=== PATIENT | male | born 1975 | race African-American/Black ===

== ENCOUNTER 2016-12-19 13:04 | Emergency (ER) | payer MEDICAID ==
[~2016-12-19] VITALS: Ht 182.9 cm; Wt 61.6 kg
[~2016-12-19 13:04] MED LIST: GABA300C PO; INSU100I11 SQ-INSULIN; INSU100V8 SQ; prozac
[2016-12-19 13:28] VITALS: BP 138/90
== END 2016-12-19 14:13 | disposition home or self-care (01) ==
LOC: ED 14:04
DX: Z76.0 Encounter for issue of repeat prescription (principal); E11.9 Type 2 diabetes mellitus without complications
CPT/HCPCS: 99283

== ENCOUNTER 2017-01-24 17:27 | Emergency (ER) | payer MEDICAID ==
[~2017-01-24] VITALS: Ht 182.9 cm; Wt 67.2 kg
[2017-01-24 17:28] VITALS: BP 141/87
== END 2017-01-24 18:07 | disposition home or self-care (01) ==
LOC: ED 18:02
DX: Z76.0 Encounter for issue of repeat prescription (principal); E11.65 Type 2 diabetes mellitus with hyperglycemia
CPT/HCPCS: 99283

== ENCOUNTER 2017-06-22 12:55 | Emergency (ER) | payer MEDICAID ==
[~2017-06-22] VITALS: Ht 182.9 cm; Wt 61.6 kg
[2017-06-22 12:57] VITALS: BP 133/87
== END 2017-06-22 13:54 | disposition home or self-care (01) ==
LOC: ED 13:47
DX: Z76.0 Encounter for issue of repeat prescription (principal); E10.40 Type 1 diabetes mellitus with diabetic neuropathy, unspecified; E10.65 Type 1 diabetes mellitus with hyperglycemia; Z79.4 Long term (current) use of insulin
CPT/HCPCS: 99283

== ENCOUNTER 2019-03-13 17:59 | Emergency (ER) | payer MEDICAID ==
[~2019-03-13] VITALS: Ht 182.9 cm; Wt 64.8 kg
[2019-03-13 20:35] VITALS: BP 136/85
== END 2019-03-13 20:45 | disposition home or self-care (01) ==
LOC: ED 20:39
DX: E11.65 Type 2 diabetes mellitus with hyperglycemia (principal); Z72.9 Problem related to lifestyle, unspecified; F17.200 Nicotine dependence, unspecified, uncomplicated; E11.40 Type 2 diabetes mellitus with diabetic neuropathy, unspecified
CPT/HCPCS: 80048; 82040; 82962; 85025; 96372; 99283

== ENCOUNTER 2020-04-11 07:32 | Emergency (ER) | payer MEDICAID ==
[~2020-04-11] VITALS: Ht 175.3 cm; Wt 62.1 kg
--- NOTE | 2020-04-11 08:28 | NUR ---
pa at bedside evaluating at this time.
[2020-04-11] MEDS ORDERED: LORazepam 1MG TABLET ONE (08:48)
--- NOTE | 2020-04-11 08:50 | NUR ---
pt medicated per emar. pt tolerated well.
[2020-04-11] MEDS ORDERED: LORazepam 1MG TABLET PO ONE (09:00)
--- NOTE | 2020-04-11 09:12 | NUR ---
BG 425 at this time
[2020-04-11] MEDS ORDERED: SODIUM CHLORIDE 0.9% 1,000ML IVBOLUS ONE (09:30)
--- NOTE | 2020-04-11 09:30 | NUR ---
piv est on r ac with no complications. ns infusing at this time. pt tolerated well.
[2020-04-11 10:21] VITALS: BP 170/83
--- NOTE | 2020-04-11 10:24 | NUR ---
Patient given discharge instructions and they have confirmed that they understand the instructions. Patient ambulatory with steady gait.
== END 2020-04-11 10:25 | disposition home or self-care (01) ==
LOC: ED 08:31
DX: F41.1 Generalized anxiety disorder (principal); E11.65 Type 2 diabetes mellitus with hyperglycemia; E11.40 Type 2 diabetes mellitus with diabetic neuropathy, unspecified; F17.210 Nicotine dependence, cigarettes, uncomplicated
CPT/HCPCS: 82962; 96360; 99283; J7030

== ENCOUNTER 2020-04-13 12:25 | Emergency (ER) | payer MEDICAID ==
[~2020-04-13] VITALS: Ht 175.3 cm; Wt 64.5 kg
[2020-04-13 13:19] LABS: BASOPHILS # (AUTO) 0.05 x10^3/uL (0-0.1); BASOPHILS % (AUTO) 1 % (0-1); EOSINOPHILS # (AUTO) 0.22 x10^3/uL (0-0.4); EOSINOPHILS % (AUTO) 3 % (1-7); LYMPHOCYTES # (AUTO) 1.88 x10^3/uL (1-3.4); LYMPHOCYTES % (AUTO) 29 % (22-44); MD NO; MEAN CORPUSCULAR HEMOGLOBIN 29.3 pg (27.5-34.5); MEAN CORPUSCULAR HGB CONC 33.8 g/dL (33.2-36.2); MEAN CORPUSCULAR VOLUME 86.6 fL (81-97); MEAN PLATELET VOLUME 9.2 fL (7.4-10.4); MONOCYTES % (AUTO) 5 % (2-9); NEUTROPHILS # (AUTO) 4.16 x10^3/uL (1.8-6.8); NEUTROPHILS % (AUTO) 63 % (42-75); PLATELET COUNT 290 x10^3/uL (130-400); RED BLOOD COUNT 4.37 x10^6/uL (4.38-5.82); RED CELL DISTRIBUTION WIDTH 15.3 % (9.4-14.8)
[2020-04-13 13:26] LABS: ALBUMIN 3.5 g/dL (3.4-5.0); ANION GAP 9 mmol/L (5-15); CALCIUM 8.6 mg/dL (8.5-10.1); CHLORIDE 89 mmol/L (98-107); CREATININE 1.68 mg/dL (0.7-1.3)
[2020-04-13] MEDS ORDERED: SODIUM CHLORIDE 0.9% 1,000ML IVBOLUS ONE ×3 (13:30→15:30)
--- NOTE | 2020-04-13 13:38 | NUR ---
LAB CALLED WITH CRITICAL BLOOD GLUCOSE OF [id number] REPORTED TO PROVIDER. ADDITIONAL PIV ACCESS INITIATED, VSS AT THIS TIME. BOLUS INFUSING
[2020-04-13 13:44] LABS: PH, VENOUS 7.304 pH (7.320-7.420)
[2020-04-13 13:45] LABS: FIO2 ROOM AIR %
[2020-04-13] MEDS ORDERED: ACETAMINOPHEN 500 MG TABLET ONE (13:46)
[2020-04-13] MEDS ORDERED: ACETAMINOPHEN 500 MG TABLET PO ONE (14:00)
[2020-04-13 14:03] LABS: MICROSCOPIC NOT IND
[2020-04-13] MEDS ORDERED: INSULIN SINGLE DOSE, ER ONE ×2 (14:03→15:40)
[2020-04-13 14:18] LABS: ACETONE, SERUM Negative (Negative)
--- NOTE | 2020-04-13 14:43 | NUR ---
PT MEDICATED WITH ADDITIONAL MEDICATIONS PER MAR, UA SAMPLE COLLECTED AND SENT TO LAB
[2020-04-13 15:03] VITALS: BP 169/109
[2020-04-13] MEDS ORDERED: INSULIN REGULAR 100 UNITS/ML, 3ML VIAL IVPush ONE (15:30)
[2020-04-13] MEDS ORDERED: INSULIN REGULAR 100 UNITS/ML, 3ML VIAL SQ-INSULIN SCH (16:00)
--- NOTE | 2020-04-13 17:20 | NUR ---
Patient given discharge instructions and they have confirmed that they understand the instructions. Patient ambulatory with steady gait.
== END 2020-04-13 17:34 | disposition home or self-care (01) ==
LOC: ED 14:28
DX: K04.7 Periapical abscess without sinus (principal); E11.65 Type 2 diabetes mellitus with hyperglycemia; Z72.9 Problem related to lifestyle, unspecified; Z76.0 Encounter for issue of repeat prescription
CPT/HCPCS: 36415; 80048; 81003; 82010; 82040; 82803; 82962; 85025; 96361; 96374; 99283; J1815; J7030

== ENCOUNTER 2020-05-22 11:23 | Emergency (ER) | payer MEDICAID ==
[~2020-05-22] VITALS: Ht 175.3 cm; Wt 63.0 kg
[2020-05-22 11:36] VITALS: BP 140/96
--- NOTE | 2020-05-22 12:12 | NUR ---
poc glucose per provider. reading of 50. pt states he took his insulin this am but didn't eat. pt given crackers and apple juice. pt axox4 and in no distress. pt states he feels fine. provider made aware.
== END 2020-05-22 12:40 | disposition home or self-care (01) ==
LOC: ED 12:05
DX: J45.40 Moderate persistent asthma, uncomplicated (principal); E10.649 Type 1 diabetes mellitus with hypoglycemia without coma; F41.1 Generalized anxiety disorder; Z76.0 Encounter for issue of repeat prescription
CPT/HCPCS: 82962; 99282

== ENCOUNTER 2020-05-26 13:43 | Emergency (ER) | payer MEDICAID ==
[2020-05-26] MEDS ORDERED: SODIUM CHLORIDE FLUSH 10ML SYR IVF ONE (14:30)
[2020-05-26] MEDS ORDERED: SODIUM CHLORIDE 0.9% 1,000ML IVBOLUS ONE (14:30)
[2020-05-26 14:50] LABS: PH, VENOUS 7.408 pH (7.320-7.420)
[2020-05-26 14:58] LABS: BASOPHILS % (AUTO) 1 % (0-1); EOSINOPHILS % (AUTO) 5 % (1-7); LYMPHOCYTES % (AUTO) 34 % (22-44); MEAN CORPUSCULAR HEMOGLOBIN 28.9 pg (27.5-34.5); MEAN CORPUSCULAR HGB CONC 33.1 g/dL (33.2-36.2); MEAN PLATELET VOLUME 8.6 fL (7.4-10.4); MONOCYTES % (AUTO) 7 % (2-9); NEUTROPHILS % (AUTO) 53 % (42-75); PLATELET COUNT 338 x10^3/uL (130-400); RED BLOOD COUNT 4.19 x10^6/uL (4.38-5.82); RED CELL DISTRIBUTION WIDTH 14.7 % (9.4-14.8)
[2020-05-26 15:02] LABS: ALANINE AMINOTRANSFERASE 37 U/L (12-78); ALBUMIN 3.2 g/dL (3.4-5.0); ANION GAP 8 mmol/L (5-15); CALCIUM 8.9 mg/dL (8.5-10.1); CHLORIDE 95 mmol/L (98-107)
[2020-05-26 15:03] LABS: MD NO
[2020-05-26 15:04] LABS: ALKALINE PHOSPHATASE 94 U/L (45-117); BILIRUBIN,TOTAL 0.4 mg/dL (0.2-1.0); TOTAL PROTEIN 7.6 g/dL (6.4-8.2)
[2020-05-26 15:28] LABS: ACETONE, SERUM Trace (Negative)
[2020-05-26] MEDS ORDERED: INSULIN REGULAR 100 UNITS/ML, 3ML VIAL IVPush ONE (15:30)
[2020-05-26] MEDS ORDERED: INSULIN LISPRO SINGLE DOSE, ER SQ-INSULIN ONE (15:37)
[2020-05-26 16:49] VITALS: BP 164/97
== END 2020-05-26 17:29 | disposition home or self-care (01) ==
LOC: ED 17:22
DX: E10.65 Type 1 diabetes mellitus with hyperglycemia (principal); J45.909 Unspecified asthma, uncomplicated; F17.210 Nicotine dependence, cigarettes, uncomplicated
CPT/HCPCS: 36415; 80053; 82010; 82803; 82962; 85025; 96361; 96374; 99283; 99406; J7030; J1815

== ENCOUNTER 2020-06-09 13:19 | Emergency (ER) | payer MEDICAID ==
[~2020-06-09] VITALS: Ht 182.9 cm; Wt 64.2 kg
--- NOTE | 2020-06-09 14:20 | NUR ---
PT TO RM FROM LOBBY AT THIS TIME
--- NOTE | 2020-06-09 14:29 | NUR ---
PIV INITIATED, LABS DRAWN. FSBG 584, VERBAL ORDER PER DR WHITE TO HANG 1L. PT MEDICATED PER MAR
[2020-06-09] MEDS ORDERED: SODIUM CHLORIDE 0.9% 1,000ML IVBOLUS ONE ×2 (14:30→15:00)
[2020-06-09 14:43] LABS: PH, VENOUS 7.356 pH (7.320-7.420)
[2020-06-09 14:48] LABS: BASOPHILS % (AUTO) 1 % (0-1); EOSINOPHILS % (AUTO) 5 % (1-7); LYMPHOCYTES % (AUTO) 33 % (22-44); MEAN CORPUSCULAR HGB CONC 33.5 g/dL (33.2-36.2); MEAN PLATELET VOLUME 9.3 fL (7.4-10.4); MONOCYTES % (AUTO) 7 % (2-9); NEUTROPHILS % (AUTO) 54 % (42-75); PLATELET COUNT 363 x10^3/uL (130-400); RED BLOOD COUNT 4.54 x10^6/uL (4.38-5.82); RED CELL DISTRIBUTION WIDTH 14.4 % (9.4-14.8)
[2020-06-09 14:55] LABS: MD NO
[2020-06-09 14:56] LABS: ALBUMIN 3.5 g/dL (3.4-5.0); ANION GAP 4 mmol/L (5-15); CALCIUM 8.8 mg/dL (8.5-10.1); CHLORIDE 97 mmol/L (98-107)
[2020-06-09 15:01] LABS: ALANINE AMINOTRANSFERASE 29 U/L (12-78); ALKALINE PHOSPHATASE 96 U/L (45-117); BILIRUBIN,TOTAL 0.4 mg/dL (0.2-1.0); CREATININE 1.61 mg/dL (0.7-1.3)
[2020-06-09 15:18] LABS: ACETONE, SERUM Trace (Negative)
[2020-06-09 15:34] VITALS: BP 142/92
--- NOTE | 2020-06-09 15:49 | NUR ---
ERMD IN TO UPDATE PT ON POC, ANTICIPATE DC. VSS.
== END 2020-06-09 16:22 | disposition home or self-care (01) ==
LOC: ED 14:40
DX: E10.65 Type 1 diabetes mellitus with hyperglycemia (principal); R63.0 Anorexia; R53.83 Other fatigue; J45.909 Unspecified asthma, uncomplicated
CPT/HCPCS: 36415; 80053; 82010; 82803; 82962; 85025; 99283; J7030

== ENCOUNTER 2020-07-12 17:29 | Emergency (ER) | payer MEDICAID ==
--- NOTE | 2020-07-12 18:06 | NUR ---
NO ANSWER FROM LOBBY
--- NOTE | 2020-07-12 18:24 | NUR ---
NO ANSWER FROM LOBBY
--- NOTE | 2020-07-12 18:36 | NUR ---
NO ANSWER FROM LOBBY
== END 2020-07-12 18:38 | disposition left against medical advice (07) ==
LOC: ED 18:33
DX: E11.9 Type 2 diabetes mellitus without complications (principal); Z53.21 Procedure and treatment not carried out due to patient leaving prior to being seen by health care provider

== ENCOUNTER 2020-07-12 23:23 | Emergency (ER) | payer MEDICAID ==
--- NOTE | 2020-07-12 23:41 | NUR ---
BS CHECKED IN TRIAGE, REGISTERED "HIGH"
[2020-07-13 00:22] LABS: BASOPHILS % (AUTO) 1 % (0-1); EOSINOPHILS % (AUTO) 2 % (1-7); LYMPHOCYTES % (AUTO) 39 % (22-44); MEAN CORPUSCULAR HGB CONC 34.1 g/dL (33.2-36.2); MEAN PLATELET VOLUME 8.2 fL (7.4-10.4); MONOCYTES % (AUTO) 8 % (2-9); NEUTROPHILS % (AUTO) 49 % (42-75); PLATELET COUNT 261 x10^3/uL (130-400); RED BLOOD COUNT 4.64 x10^6/uL (4.38-5.82); RED CELL DISTRIBUTION WIDTH 14.2 % (9.4-14.8)
[2020-07-13 00:23] LABS: PH, VENOUS 7.326 pH (7.320-7.420)
[2020-07-13 00:24] LABS: MD NO
[2020-07-13 00:35] LABS: ALANINE AMINOTRANSFERASE 126 U/L (12-78); ALBUMIN 3.7 g/dL (3.4-5.0); CALCIUM 9.2 mg/dL (8.5-10.1); CHLORIDE 83 mmol/L (98-107)
[2020-07-13 00:37] LABS: ALKALINE PHOSPHATASE 130 U/L (45-117); BILIRUBIN,TOTAL 0.4 mg/dL (0.2-1.0); TOTAL PROTEIN 8.7 g/dL (6.4-8.2)
[2020-07-13 00:52] LABS: ANION GAP 9 mmol/L (5-15)
--- NOTE | 2020-07-13 00:58 | NUR ---
PT TO ROOM FROM LOBBY
[2020-07-13 01:08] LABS: ACETONE, SERUM Negative (Negative)
[2020-07-13] MEDS ORDERED: INSULIN REGULAR 100 UNITS/ML, 3ML VIAL IVPush ONE ×3 (01:30→04:00)
[2020-07-13] MEDS ORDERED: SODIUM CHLORIDE 0.9% 1,000ML IVBOLUS ONE ×3 (01:30→03:00)
[2020-07-13] MEDS ORDERED: INSULIN SINGLE DOSE, ER ONE ×3 (01:47→03:40)
[2020-07-13 02:54] VITALS: BP 142/98
--- NOTE | 2020-07-13 03:14 | NUR ---
after 2 liters and 10 units IV insulin, finger stick still reading "HIGH" er md marie notified and he states to give 1 more liter bolus and 10 more units insulin then recheck finger stick again.
[2020-07-13 04:25] LABS: ANION GAP 4 mmol/L (5-15); CALCIUM 8.4 mg/dL (8.5-10.1); CHLORIDE 102 mmol/L (98-107)
== END 2020-07-13 05:28 | disposition home or self-care (01) ==
LOC: ED 07-13 05:19
DX: E10.65 Type 1 diabetes mellitus with hyperglycemia (principal); F17.210 Nicotine dependence, cigarettes, uncomplicated; J45.909 Unspecified asthma, uncomplicated
CPT/HCPCS: 36415; 80048; 80053; 82010; 82803; 82962; 83930; 85025; 96361; 96374; 96376; 99284; 99406; J1815; J7030; 96375